=== PATIENT | male | born 1960 | race Caucasian/White ===

== ENCOUNTER 2017-02-03 10:30 | Emergency (ER) | payer MEDICAID ==
[~2017-02-03] VITALS: Ht 180.3 cm; Wt 160.0 kg
[2017-02-03 12:00] VITALS: BP 158/96
[2017-02-03] MEDS ORDERED: IBUPROFEN 800MG TABLET PO ONE (12:00)
[2017-02-03 12:32] LABS: BASOPHILS % 1.2 % (0.0-2.0); EOSINOPHILS % 1.3 % (0.0-5.0); HEMATOCRIT. 44.8 % (42.0-52.0); HEMOGLOBIN. 15.1 g/dL (14.0-18.0); LYMPHOCYTES % 21.9 % (20.0-50.0); MEAN CORPUSCULAR HEMOGLOBIN 28.6 pg (28.0-32.0); MEAN CORPUSCULAR VOLUME 84.5 fL (80.0-94.0); MONOCYTES % 7.2 % (2.0-8.0); NEUTROPHILS % 68.4 % (40.0-76.0); PLATELET 306 x1000/uL (130-400); RED BLOOD CELL COUNT 5.29 mill/uL (4.7-6.1); RED CELL DISTRIBUTION WIDTH 14.2 % (11.6-14.6)
[2017-02-03 12:40] LABS: PROTHROMBIN TIME 10.4 sec
[2017-02-03 12:45] LABS: CARBON DIOXIDE 26 mEq/L (21-32); CHLORIDE 105 mEq/L (98-107)
== END 2017-02-03 13:44 | disposition home or self-care (01) ==
LOC: ER 10:57
DX: I87.2 Venous insufficiency (chronic) (peripheral) (principal); G47.30 Sleep apnea, unspecified; F17.200 Nicotine dependence, unspecified, uncomplicated; R56.9 Unspecified convulsions; Z86.718 Personal history of other venous thrombosis and embolism
CPT/HCPCS: 36415; 80048; 85025; 85610; 93970; 99285

== ENCOUNTER 2017-03-28 20:21 | Inpatient (IN) | payer MEDICAID ==
[~2017-03-28] VITALS: Ht 180.3 cm; Wt 156.5 kg
[2017-03-28] MEDS ORDERED: SODIUM CHLORIDE 0.9% 1,000 ML IV ONE (22:31)
[2017-03-28] MEDS ORDERED: ONDANSETRON HCL 4MG/2ML VIAL IV STA (22:31)
[2017-03-28] MEDS ORDERED: FAMOTIDINE 20MG/2ML VIAL IV STA (22:31)
[2017-03-28] MEDS ORDERED: KETOROLAC 30MG/ML VIAL IV STA (22:31)
[2017-03-28 23:23] LABS: CHLORIDE 103 mEq/L (98-107)
[2017-03-28 23:27] LABS: D-DIMER 0.34 mg/L FEU (<0.50); PROTHROMBIN TIME 10.2 sec (9.4-11.6)
[2017-03-28 23:29] LABS: CARBON DIOXIDE 25 mEq/L (21-32); ETHANOL BLOOD < 10 mg/dL
[2017-03-28 23:32] LABS: TROPONIN I < 0.02 ng/mL (0.00-0.04)
[2017-03-28 23:33] LABS: BASOPHILS % 0.5 % (0.0-2.0); EOSINOPHILS % 0.3 % (0.0-5.0); HEMATOCRIT. 44.6 % (42.0-52.0); HEMOGLOBIN. 15.2 g/dL (14.0-18.0); LYMPHOCYTES % 10.1 % (20.0-50.0); MEAN CORPUSCULAR HEMOGLOBIN 29.1 pg (28.0-32.0); MEAN PLATELET VOLUME 8.4 fl (7.4-10.4); MONOCYTES % 5.4 % (2.0-8.0); NEUTROPHILS % 83.7 % (40.0-76.0); PLATELET 299 x1000/uL (130-400); RED BLOOD CELL COUNT 5.24 mill/uL (4.7-6.1); RED CELL DISTRIBUTION WIDTH 14.7 % (11.6-14.6)
[2017-03-28] MEDS ORDERED: SODIUM CHLORIDE 0.9% 1,000 ML IV NR (23:50)
[2017-03-29] MEDS ORDERED: LEVOFLOXACIN 750MG PREMIX 150 ML IV ONE
[2017-03-29 00:52] LABS: CLARITY URINE TURBID (CLEAR); COLOR URINE DARK YELLOW (YELLOW); GLUCOSE URINE NEGATIVE (NEGATIVE); KETONES URINE TRACE (NEGATIVE); LEUKOCYTE ESTERASE URINE 2+ (NEGATIVE); NITRITE URINE POSITIVE (NEGATIVE); OCCULT BLOOD URINE 3+ (NEGATIVE); PH URINE 5.5 (4.5-8.0); PROTEIN URINE 3+ (NEGATIVE); SPECIFIC GRAVITY URINE 1.028 (1.005-1.030)
[2017-03-29 01:15] LABS: *AMPHETAMINES SCREEN URINE NEGATIVE (NEGATIVE); *BARBITURATES SCREEN URINE NEGATIVE (NEGATIVE); *BENZODIAZEPINES SCREEN URINE NEGATIVE (NEGATIVE); *COCAINE SCREEN URINE NEGATIVE (NEGATIVE); CANNABINOID URINE SCREEN NEGATIVE (NEGATIVE); METHADONE URINE SCREEN NEGATIVE (NEGATIVE); OPIATES URINE SCREEN NEGATIVE (NEGATIVE); PHENCYCLIDINE URINE SCREEN NEGATIVE (NEGATIVE)
[2017-03-29 01:40] VITALS: BP 132/72
[2017-03-29] MEDS ORDERED: BUPR-102 PO (08:41)
[2017-03-29] MEDS ORDERED: PRAZ1CAP5 PO (08:41)
[2017-03-29] MEDS ORDERED: HYDROMORPHONE HCL/PF 2MG/ML CPJ IV SCH (09:30)
[2017-03-29] MEDS ORDERED: ONDANSETRON HCL 4MG/2ML VIAL IV SCH (09:30)
[2017-03-29 14:30] VITALS: BP 132/72
[2017-03-29] MEDS ORDERED: LEVAQUIN XX SCH (14:45)
[2017-03-29] MEDS ORDERED: SODIUM CHLORIDE 0.9% 1,000 ML IV SCH (14:45)
[2017-03-29] MEDS: ACETAMINOPHEN 325MG TABLET PO PRN (15:38)
[2017-03-29 16:00] VITALS: BP 130/70
[2017-03-29 20:00] VITALS: BP 109/52
[2017-03-30] VITALS: BP 126/62
[2017-03-30] MEDS ORDERED: LEVOFLOXACIN 500MG PREMIX 100 ML IV SCH
[2017-03-30] MEDS: SODIUM CHLORIDE 0.9% 1,000 ML IV SCH ×4 (02:37→20:50)
[2017-03-30] MEDS: ACETAMINOPHEN 325MG TABLET PO PRN ×3 (02:38→20:48)
[2017-03-30 04:00] VITALS: BP 107/52
[2017-03-30 06:16] LABS: BASOPHILS % 0.7 % (0.0-2.0); HEMATOCRIT. 40.9 % (42.0-52.0); HEMOGLOBIN. 13.5 g/dL (14.0-18.0); LYMPHOCYTES % 14.2 % (20.0-50.0); MEAN CORPUSCULAR HEMOGLOBIN 28.7 pg (28.0-32.0); MEAN CORPUSCULAR VOLUME 87.1 fL (80.0-94.0); MEAN PLATELET VOLUME 8.1 fl (7.4-10.4); MONOCYTES % 8.9 % (2.0-8.0); NEUTROPHILS % 75.2 % (40.0-76.0); PLATELET 247 x1000/uL (130-400); RED CELL DISTRIBUTION WIDTH 14.6 % (11.6-14.6)
[2017-03-30] MEDS: LEVOFLOXACIN 750MG PREMIX 150 ML IV SCH (06:36)
[2017-03-30 06:44] LABS: CARBON DIOXIDE 25 mEq/L (21-32); CHLORIDE 106 mEq/L (98-107)
[2017-03-30 08:00] VITALS: BP 108/49
[2017-03-30 08:53] LABS: *AMPHETAMINES SCREEN URINE NEGATIVE (NEGATIVE); *BARBITURATES SCREEN URINE NEGATIVE (NEGATIVE); *BENZODIAZEPINES SCREEN URINE NEGATIVE (NEGATIVE); *COCAINE SCREEN URINE NEGATIVE (NEGATIVE); CANNABINOID URINE SCREEN NEGATIVE (NEGATIVE); METHADONE URINE SCREEN NEGATIVE (NEGATIVE); OPIATES URINE SCREEN NEGATIVE (NEGATIVE); PHENCYCLIDINE URINE SCREEN NEGATIVE (NEGATIVE)
[2017-03-30] MEDS: BUPROPION HCL 150MG TABLET XL 24HR PO SCH (09:39)
[2017-03-30 12:25] VITALS: BP 106/50
[2017-03-30 16:05] VITALS: BP 126/50
[2017-03-30 20:00] VITALS: BP 117/60
[2017-03-30] MEDS ORDERED: PRAZOSIN HCL 1MG CAPSULE PO SCH (21:00)
[2017-03-30] MEDS: GENTAMICIN SULFATE 160 MG in SODIUM CHLORIDE 0.9% 100 ML IV SCH (22:45)
[2017-03-31] VITALS: BP 131/65
[2017-03-31] MEDS: SODIUM CHLORIDE 0.9% 1,000 ML IV SCH (02:57)
[2017-03-31 04:00] VITALS: BP 116/60
[2017-03-31] MEDS: LEVOFLOXACIN 750MG PREMIX 150 ML IV SCH (05:11)
[2017-03-31] MEDS: ACETAMINOPHEN 325MG TABLET PO PRN (05:17)
[2017-03-31 08:00] VITALS: BP 115/65
[2017-03-31] MEDS: BUPROPION HCL 150MG TABLET XL 24HR PO SCH (08:25)
[2017-03-31] MEDS: GENTAMICIN SULFATE 160 MG in SODIUM CHLORIDE 0.9% 100 ML IV SCH (10:26)
[2017-03-31 12:00] VITALS: BP 108/57
[2017-03-31 16:00] VITALS: BP 127/61
[2017-03-31 18:19] VITALS: BP 127/61
== END 2017-03-31 18:54 | disposition home or self-care (01) | DRG 720 ==
LOC: ER 20:21 → 6EST 03-29 03:08
PROVIDERS: ADMIT Internal Medicine; ATTEND Internal Medicine
DX: A41.9 Sepsis, unspecified organism (principal); G62.9 Polyneuropathy, unspecified; N12 Tubulo-interstitial nephritis, not specified as acute or chronic; Z85.51 Personal history of malignant neoplasm of bladder; I73.9 Peripheral vascular disease, unspecified; Z87.440 Personal history of urinary (tract) infections; Z83.3 Family history of diabetes mellitus; F17.210 Nicotine dependence, cigarettes, uncomplicated; Z79.899 Other long term (current) drug therapy; Z80.8 Family history of malignant neoplasm of other organs or systems; B96.20 Unspecified Escherichia coli [E. coli] as the cause of diseases classified elsewhere
CPT/HCPCS: 36415; 71010; 74176; 80048; 80053; 80305; 81001; 83605; 83690; 83735; 83880; 84484; 85025; 85379; 85610; 87040; 87077; 87086; 87186; 93005; 96361; 96374; 96375; 99285; G0482; J1170; J1580; J1885; J1956; J2405; J3490; J7030; J7050